=== PATIENT | female | born 1935 | race Caucasian/White ===

== ENCOUNTER → 2019-10-06 | Outpatient (CLI) | payer MEDICARE, OTHER ==
--- NOTE | ~2019-10-06 | EKG ---
[place], [place] ELECTROCARDIOGRAM REPORT NAME: RUI MCKEON UNIT #: [id number] ROOM: DOCTOR: EPIPHANY DRAFT REPORT BIRTHDATE: [birth year] [facility] Test Date: 2019-10-06 Test Time: 14:53:25 Pat Name: RUI MCKEON Department: Room: Gender: F Re Dye Hand: : 1935 Requested By: SHAE SHEA Order Number: [id number] Reading MD: Gallo Tse MD Measurements Intervals Campus Rate: 54 P: 52 TN: 182 QRS: 38 QRSD: 102 T: 54 QT: 428 QTc: 406 Interpretive Statements Sinus rhythm Probable left ventricular hypertrophy No previous ECG available for comparison Electronically Signed On 10-10-2019 9:09:02 PST by Gallo Tse MD CM:EKGRPT:ELECTROCARDIOGRAM REPORT [id number] SHAE SHORE DRAFT REPORT SHAE SHEA MD
== END | disposition home or self-care (01) ==
LOC: RESCLI 13:46
DX: R07.9 Chest pain, unspecified (principal); E11.9 Type 2 diabetes mellitus without complications; E78.5 Hyperlipidemia, unspecified; E03.9 Hypothyroidism, unspecified; Z79.899 Other long term (current) drug therapy